=== PATIENT | female | born 1965 | race Caucasian/White ===

== ENCOUNTER 2020-05-31 20:03 | Emergency (ER) | payer SELFPAY ==
[~2020-05-31] VITALS: Ht 160 cm; Wt 72.6 kg
[2020-05-31 20:05] VITALS: BP 172/90
--- NOTE | 2020-05-31 20:05 | NUR ---
TO LOBBY A/W BED AMBULATORY
[2020-05-31] MEDS: KETOROLAC 30 MG/ML VIAL IM ONE ×2 (20:53→22:10)
[2020-05-31 21:55] VITALS: BP 172/90
--- NOTE | 2020-05-31 21:55 | NUR ---
D/C'D HOME, AMBULATORY IN NAD. ACI IN POSESSION WITH UNDERSTANDING EXPRESSED
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
== END 2020-05-31 21:55 | disposition home or self-care (01) ==
LOC: MED 20:03
DX: M25.512 Pain in left shoulder (principal); M54.2 Cervicalgia; R07.9 Chest pain, unspecified; V89.2XXA Person injured in unspecified motor-vehicle accident, traffic, initial encounter; Y93.89 Activity, other specified; Y92.89 Other specified places as the place of occurrence of the external cause; Y99.8 Other external cause status
CPT/HCPCS: 71045; 73030; 96372; 99284; J1885